=== PATIENT | female | born 1980 | race Two or more races ===

== ENCOUNTER 2023-09-10 14:32 | Outpatient (OUT) | payer OTHER, SELFPAY ==
[2023-09-11 12:10] LABS: HIV Ab/p24 Ag Screen Non Reactive (Non Reactive)
[2023-09-11 13:08] LABS: Rapid Plasma Reagin, Quant Non Reactive titer (NonRea<1:1)
[2023-09-11 14:09] LABS: HBsAg Screen Negative (Negative); HCV Ab Non Reactive (Non Reactive); Hep A Ab, IgM Negative (Negative); Hep B Core Ab, IgM Negative (Negative)
[2023-09-12 07:09] LABS: Neisseria gonorrhoeae, NAA Negative (Negative)
== END 2023-09-10 14:33 | disposition home or self-care (01) ==
LOC: LAB 14:37
PROVIDERS: PCP Physician Assistant; Visit Provider Physician Assistant
DX: N30.01 Acute cystitis with hematuria (principal); Z72.51 High risk heterosexual behavior
CPT/HCPCS: 36415; 80074; 81003; 86592; 86695; 86696; 87086; 87150; 87186; 87389; 87491; 87591

== ENCOUNTER 2023-09-10 20:31 | Outpatient (REF) | payer OTHER, SELFPAY ==
[2023-09-10 22:57] LABS: Bilirubin Urine NEGATIVE (NEGATIVE); Blood Urine SMALL (NEGATIVE); Clarity Urine CLEAR (CLEAR); Color Urine YELLOW (YELLOW); Glucose Urine UA NEGATIVE (NEGATIVE); Ketones Urine NEGATIVE (NEGATIVE); Leukocyte Esterase Urine NEGATIVE (NEGATIVE); Nitrite Urine NEGATIVE (NEGATIVE); Protein Urine NEGATIVE (NEG/TRACE); Specific Gravity Urine >=1.030 (1.005-1.025); Urobilinogen Urine 0.2 EU/dL (0.2-1.0); pH Urine 5.5 (5.0-9.0)
== END 2023-09-10 20:32 | disposition home or self-care (01) ==
LOC: LAB 20:31
PROVIDERS: PCP Physician Assistant; Visit Provider Physician Assistant
DX: N30.01 Acute cystitis with hematuria (principal)
CPT/HCPCS: 81003; 87086; 87150; 87186

== ENCOUNTER 2023-09-20 13:33 | Outpatient (OUT) | payer OTHER, SELFPAY ==
--- NOTE | 2023-09-20 13:36 | CT_ITS ---
[address] [address] Patient Name: ARELIS MORALES MRN: [id number] date: 1980 Sex: F Assigned Patient Location: CT Current Patient Location: Accession/Order Number: [id number] Exam Date: 09/20/2023 13:41 Report Date: 09/21/2023 04:50 At the request of: MJ MARS Procedure: CT abdomen pelvis wo con EXAMINATION: CT abdomen pelvis wo con HISTORY: Urinary Tract Infection N39.0 ; bilateral flank pain, pain with urination COMPARISON: CT abdomen pelvis 04/28/2020 TECHNIQUE: Axial, Coronal, and Sagittal images were obtained without and/or with IV contrast as indicated by examination type. Dose reduction techniques were achieved by using automated exposure control and/or adjustment of mA and/or kV according to patient size and/or use of iterative reconstruction technique. FINDINGS: LUNG BASES: No visible pulmonary or pleural disease. LIVER: No enlargement, atrophy, suspicious density, or significant focal lesion. BILIARY: Cholecystectomy. PANCREAS: No lesion, fluid collection, or abnormal duct dilatation. SPLEEN: No enlargement or focal lesion. ADRENALS: No mass or enlargement. KIDNEYS: No mass, obstruction, or calcification. BOWEL/MESENTERY: No visible mass, obstruction, or bowel wall thickening. AORTA/VASCULAR: No aneurysm or dissection. RETROPERITONEUM: No mass or adenopathy. LYMPH NODES: No adenopathy. URINARY BLADDER: No visible focal wall thickening, lesion, or calculus. PELVIC ORGANS: Hysterectomy. ABDOMINAL WALL: No mass or hernia. BONES: Posterior mechanical fusion L4-L5. OTHER: Negative. CT/CT abdomen pelvis wo con IMPRESSION: 1. No urinary tract calculi, obstructive uropathy, or appreciable mass on today's noncontrast study. 2. Unremarkable urinary bladder. 3. No appreciable findings to account for patient's symptoms. Electronically authenticated by: MIRIAN UNDERWOOD Date: 09/21/2023 04:50
== END 2023-09-20 13:34 | disposition home or self-care (01) ==
LOC: CT 13:33
PROVIDERS: PCP Physician Assistant; Visit Provider Physician Assistant
DX: N39.0 Urinary tract infection, site not specified (principal)
CPT/HCPCS: 74176